=== PATIENT | male | born 2005 | race Caucasian/White ===

== ENCOUNTER 2024-02-19 15:09 | Observation (INO) ==
[2024-02-19] MEDS: KETOROLAC TROMETHAMINE 15 MG/ML VIAL IV STA (16:01)
[2024-02-19] MEDS: SODIUM CHLORIDE 0.9% 1,000 ML IV ONE (16:01)
--- NOTE | 2024-02-19 16:18 | XRay Report ---
EXAM: Radiograph of the Chest 1 View INDICATION: Chest pain. TECHNIQUE: Frontal view of the chest. COMPARISON: No relevant prior studies available. FINDINGS: Lungs and pleural spaces: No consolidation or pulmonary edema. No pleural effusion or pneumothorax. Heart: Shape and configuration within normal limits allowing for technique. Mediastinum: Normal contour. Bones/joints: No fracture, erosion or dislocation. Soft tissues: No abnormality noted. No radiopaque foreign body noted. Upper abdomen: No abnormality noted. IMPRESSION: No abnormality noted. ACT 112: Negative or not required by law. Electronically signed by Ingrid Schwartz 02-19-2024 4:18 PM
[2024-02-19 16:23] LABS: Basophils # (auto) 0.02 K/uL (0.00-0.20); Basophils % (auto) 0.3 %; Eosinophils # (auto) 0.05 K/uL (0.00-0.50); Eosinophils % (auto) 0.7 %; Hematocrit (blood only) 42.4 % (42.0-52.0); Hemoglobin 15.1 g/dl (14.0-18.0); Immature Granulocytes # (auto) 0.02 K/uL (0.01-0.20); Immature Granulocytes % (auto) 0.3 %; Lymphocytes # (auto) 2.53 K/uL (1.20-3.40); Lymphocytes % (auto) 36.9 %; Mean Corpuscular Hemoglobin 29.3 pg (25.0-34.0); Mean Corpuscular Hgb Conc 35.6 g/dL (32.0-36.0); Mean Corpuscular Volume 82.2 fL (80.0-100.0); Mean Platelet Volume 9.5 fL (9.4-12.4); Monocytes # (auto) 0.68 K/uL (0.11-0.59); Monocytes % (auto) 9.9 %; Neutrophils # (auto) 3.55 K/uL (1.40-6.50); Neutrophils % (auto) 51.9 %; Platelet Count 273 K/uL (130-400); RDW Coefficient of Variation 11.5 % (11.5-14.5); RDW Standard Deviation 34.5 fL (36.4-46.3); Red Blood Count 5.16 M/uL (4.70-6.10); White Blood Count 6.85 K/ul (4.8-10.8)
[2024-02-19 16:41] LABS: Albumin Globulin Ratio 1.5 (0.9-2); Albumin Level 4.4 gm/dl (3.4-5.0); BUN Creatinine Ratio 14.3 (10-20); Bilirubin,Total 0.8 mg/dl (0.2-1.0); Calcium 9.4 mg/dl (8.6-10.3); Creatinine Clr Calc Pharmacy 144.6 ml/min; Globulin 2.9 gm/dl (2.5-4.0); Total Protein 7.3 gm/dl (6.0-8.3)
--- NOTE | 2024-02-19 16:44 | Emergency Department Note ---
ED Provider Note History of Present Illness Chief Complaint: Throat Pain Stated Complaint: NOT ABLE TO EAT/DRINK, 3 DAYS, THROAT/CHEST PAIN Time Seen by Provider: 02/19/24 15:24 Source: patient Mode of arrival: ambulatory Limitations: no limitations This is a 18-year-old male who presents to the emergency department for evaluation of pain with swallowing. Patient reports that he was seen here a few days ago and was tested for HSV at that time due to blisters in his mouth. He states that he was prescribed Magic mouthwash and sent home. He states that he has had a lot of difficulty drinking and eating due to discomfort in his throat/chest when he swallows. He has tried the Magic mouthwash, Tylenol and ibuprofen without relief. He denies any fevers. He states he does not have much pain at rest but feels the pain in his chest when he swallows. No fevers, vomiting or shortness of breath. Home Medications Medication Instructions Recorded Confirmed Type Magic Mouthwash 300 mL mouthwash 15 ml mucous membrane QID PRN pain 02/17/24 02/19/24 Rx #300 mL acetaminophen 500 mg tablet 1,000 mg PO Q6H PRN Pain 02/19/24 02/19/24 History (Tylenol Extra Strength) acyclovir 400 mg tablet 400 mg PO TID #28 tabs 02/21/24 Rx pantoprazole 40 mg tablet,delayed 40 mg PO QAM #30 tabs 02/21/24 Rx release Allergies Allergy/AdvReac Type Severity Reaction Status Date / Time No Known Allergies Allergy Unverified 02/19/24 16:43 Past Med/Surg History Problem List (Updated 02/22/24 @ 22:05 by Ashley Moody PA-C) Decreased oral intake (Acute) Odynophagia (Acute) Tonsil pain Pharyngitis (Acute) Social History Smoking Status: Current every day smoker Tobacco Type: E-cigarettes / Vaping Do You Dip or Chew Tobacco: No; Hx Alcohol Use: Yes Alcohol type: beer and hard liquor Hx Substance Use: Yes Preferred Language: Maldivian Communication Ability: Effective 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 Beliefs That Will Affect Care: None Current Living Situation: Other Current Living Situation Comment: 3 roommates Feels Safe at Home: Yes Assistive Devices: None Physical Exam Vital Signs Vital Signs - 24 hr 02/19/24 15:13 02/19/24 15:47 02/19/24 15:56 Temperature 36.6 C Temperature Source Temporal Artery Scan Pulse Rate 72 64 Pulse Rate [Apical] 57 L Respiratory Rate 17 19 Blood Pressure 136/78 Blood Pressure [Left Arm] 138/78 Blood Pressure Mean 97 Blood Pressure Mean [Left Arm] 98 Pulse Oximetry 98 98 Oxygen Delivery Method Room Air Sepsis Recent Fever Within 48 Hours No Sepsis New/Unexplained Change in Mental Status N/A Sepsis Action Taken by Nursing No Action Required VITALS: Vitals are noted on the nurse's note and reviewed by myself. GENERAL: This is a 18-year-old male, in no acute distress, well-developed well- nourished. SKIN: The skin was without rashes. EARS: External auditory canals clear, tympanic membranes pearly fishman without erythema or effusion bilaterally. EYES: Pupils equal round and reactive to light and accommodation. MOUTH: Mucous membranes moist. Scattered shallow erythematous ulcerations to the posterior oropharynx and soft palate. NECK: Supple without nuchal rigidity. No lymphadenopathy. HEART: Regular rate and rhythm without murmurs gallops or rubs. LUNGS: Clear to auscultation bilaterally without wheezes, rales or rhonchi. NEURO: Patient was alert and oriented to person place and time. Course Administered Medications Discontinued Medications Al Hydrox/Mg Hydrox/Simethicone (Aluminum/Magnesium Susp 30 Ml Udc) 15 ml PO NOW STA Stop: 02/19/24 19:06 Last Admin: 02/19/24 19:25 Dose: 15 ml Documented By: NAVEEN Dexamethasone Sodium Phosphate (DexamethasonePf 10 Mg/Ml Vial) 10 mg IV NOW ONE Stop: 02/19/24 19:06 Last Admin: 02/19/24 19:25 Dose: 10 mg Documented By: NAVEEN Fentanyl Citrate (Fentanyl Citrate Pf 100 Mcg/2 Ml Vial) Confirm Administered Dose 100 mcg .ROUTE .STK-MED ONE Stop: 02/20/24 13:35 Last Admin: 02/20/24 15:17 Dose: Not Given Documented By: JULITA Sodium Chloride (Nss) 1,000 mls @ 999 mls/hr IV .Q1H1M ONE Stop: 02/19/24 16:42 Last Infusion: 02/19/24 20:32 Dose: Infused Documented By: Admin: 02/19/24 16:01 Dose: 999 mls/hr Documented By: SRIDEVI Sodium Chloride (Nss) 1,000 mls @ 125 mls/hr IV .Q8H DAVID Stop: 02/20/24 23:18 Last Infusion: 02/21/24 01:46 Dose: Infused Documented By: KSAdrian Admin: 02/20/24 16:31 Dose: 125 mls/hr Documented By: Infusion: 02/20/24 15:24 Dose: Infused Documented By: Admin: 02/20/24 08:01 Dose: 125 mls/hr Documented By: Infusion: 02/20/24 07:59 Dose: Infused Documented By: Admin: 02/19/24 23:59 Dose: 125 mls/hr Documented By: JULIETTE Acetaminophen (Ofirmev) 1,000 mg in 100 mls @ 400 mls/hr IV Q8H PRN PRN Reason: Pain or Fever Stop: 02/22/24 23:18 Last Infusion: 02/20/24 00:17 Dose: Infused Documented By: Admin: 02/20/24 00:02 Dose: 400 mls/hr Documented By: JULIETTE Dexamethasone 10 mg/ Syringe 2.5 mls @ 1 mls/min IV DAILY DAVID Stop: 03/21/24 08:59 Last Admin: 02/20/24 08:34 Dose: 1 mls/min Documented By: JULITA Acyclovir Sodium 400 mg/ (Dextrose) 258 mls @ 250 mls/hr IV Q8H DAVID; Protocol Stop: 03/01/24 14:59 Last Infusion: 02/21/24 13:01 Dose: Infused Documented By: Admin: 02/21/24 11:53 Dose: 250 mls/hr Documented By: Infusion: 02/21/24 07:24 Dose: Infused Documented By: Admin: 02/21/24 06:10 Dose: 250 mls/hr Documented By: KSAdrian Infusion: 02/20/24 23:18 Dose: Infused Documented By: Admin: 02/20/24 22:13 Dose: 250 mls/hr Documented By: Infusion: 02/20/24 16:31 Dose: Infused Documented By: Admin: 02/20/24 15:24 Dose: 250 mls/hr Documented By: JULITA Influenza Virus Vacc Triv Types A&B (Influenza Vacc [id number](6m+)/Pf (Iiv3) 0.5ml Syr) 0.5 ml IM .ONCE ONE Stop: 02/20/24 08:48 Last Admin: 02/21/24 01:46 Dose: Not Given Documented By: JAY Ketorolac Tromethamine (Ketorolac Tromethamine 15 Mg/Ml Vial) 15 mg IV NOW STA Stop: 02/19/24 15:43 Last Admin: 02/19/24 16:01 Dose: 15 mg Documented By: SRIDEVI Lidocaine HCl (Lidocaine 2% 2 Ml Vial/Amp(20mg/Ml)) Confirm Administered Dose 6 ml INFIL .STK-MED ONE Stop: 02/20/24 13:34 Last Admin: 02/20/24 15:17 Dose: Not Given Documented By: JULITA Oxycodone HCl (Oxycodone Hcl Ir 5 Mg Tab (Immediate Release)) 5 mg PO NOW STA Stop: 02/19/24 17:41 Last Admin: 02/19/24 17:50 Dose: 5 mg Documented By: NAVEEN Pantoprazole Sodium (Pantoprazole 40 Mg Tab) 40 mg PO QAM [facility] Stop: 03/22/24 08:59 Last Admin: 02/21/24 11:13 Dose: 40 mg Documented By: AMINAH Propofol (Propofol Iv Emulsion 10 Mg/Ml 20 Ml Vial) Confirm Administered Dose 400 mg IV .STK-MED ONE Stop: 02/20/24 13:34 Last Admin: 02/20/24 15:17 Dose: Not Given Documented By: JULITA Medical Decision Making Differential Diagnosis Viral syndrome, tonsillitis, streptococcal pharyngitis, mononucleosis, peritonsillar abscess, retropharyngeal abscess, otitis, pneumonia, influenza, as well as other pathologies. Laboratory Data Attestation: I reviewed the patient's lab results. 02/20/24 03:41 02/20/24 03:41 Lab Results 02/19/24 Range/Units 15:55 WBC 6.85 (4.8-10.8) K/ul RBC 5.16 (4.70-6.10) M/uL Hgb 15.1 (14.0-18.0) g/dl Hct 42.4 (42.0-52.0) % MCV 82.2 (80.0-100.0) fL MCH 29.3 (25.0-34.0) pg MCHC 35.6 (32.0-36.0) g/dL RDW Std Deviation 34.5 L (36.4-46.3) fL RDW Coeff of Baylee 11.5 (11.5-14.5) % Plt Count 273 (130-400) K/uL MPV 9.5 (9.4-12.4) fL Immature Gran % (Auto) 0.3 % Neut % (Auto) 51.9 % Lymph % (Auto) 36.9 % Snyder % (Auto) 9.9 % Eos % (Auto) 0.7 % Baso % (Auto) 0.3 % Neut # (Auto) 3.55 (1.40-6.50) K/uL Lymph # (Auto) 2.53 (1.20-3.40) K/uL Snyder # (Auto) 0.68 H (0.11-0.59) K/uL Eos # (Auto) 0.05 (0.00-0.50) K/uL Baso # (Auto) 0.02 (0.00-0.20) K/uL Immature Gran # (Auto) 0.02 (0.01-0.20) K/uL Sodium 136 (136-145) mmol/L Potassium 4.0 (3.5-5.1) mmol/L Chloride 99 (98-107) mmol/L Carbon Dioxide 28 (21-32) mmol/L Anion Gap 9 (3-11) BUN 13 (6-23) mg/dl Creatinine 0.91 (0.6-1.4) mg/dl Est Cr Clr Drug Dosing 144.6 ml/min eGFR 124.51 BUN/Creatinine Ratio 14.3 (10-20) Glucose 86 (70-99(Fasting)) mg/dl Calcium 9.4 (8.6-10.3) mg/dl Total Bilirubin 0.8 (0.2-1.0) mg/dl AST 12 L (13-39) U/L ALT 5 L (7-52) U/L Alkaline Phosphatase 55 (34-104) U/L Total Protein 7.3 (6.0-8.3) gm/dl Albumin 4.4 (3.4-5.0) gm/dl Globulin 2.9 (2.5-4.0) gm/dl Albumin/Globulin Ratio 1.5 (0.9-2) Imaging Data Attestation: I personally reviewed and interpreted this imaging study as follows: Radiologist's Impression: Chest X-Ray 02/19/24 15:43 EXAM: Radiograph of the Chest 1 View INDICATION: Chest pain. TECHNIQUE: Frontal view of the chest. COMPARISON: No relevant prior studies available. FINDINGS: Lungs and pleural spaces: No consolidation or pulmonary edema. No pleural effusion or pneumothorax. Heart: Shape and configuration within normal limits allowing for technique. Mediastinum: Normal contour. Bones/joints: No fracture, erosion or dislocation. Soft tissues: No abnormality noted. No radiopaque foreign body noted. Upper abdomen: No abnormality noted. IMPRESSION: No abnormality noted. ACT 112: Negative or not required by law. Electronically signed by Ingrid Schwartz 02-19-2024 4:18 PM MDM Narrative This patient is a 18-year-old male who presents to the emergency department for evaluation of inability to eat or drink anything. Patient was seen here recently due to a sore throat. It appears that he had herpangina which actually seems to be improved today based on the prior note. However, patient states he has been unable to eat or drink anything since then. His labs are unremarkable. I do suspect a viral source of his symptoms. Patient was given multiple rounds of pain medication here with no relief of his symptoms. He was still unable to tolerate anything to eat or drink more than a few sips of water. For this reason the case was discussed with the hospitalist service who agreed to evaluate the patient for admission. Impression Odynophagia, Decreased oral intake Discharge Plan Visit Data Chief Complaint: Throat Pain Stated Complaint: NOT ABLE TO EAT/DRINK, 3 DAYS, THROAT/CHEST PAIN ED Provider: Crescencio Mullins ED Midlevel Provider: Ashley Moody Discharge Problem: Odynophagia, Decreased oral intake Patient Disposition: Admitted As Inpatient Discharge Instructions Interventions: ED Discharge Assessment Last Done: 02/19/24 22:52
[2024-02-19] MEDS: oxyCODONE HCL IR 5 MG TAB (IMMEDIATE RELEASE) PO STA (17:50)
[2024-02-19] MEDS: ALUMINUM/MAGNESIUM SUSP 30 ML UDC PO STA (19:25)
[2024-02-19] MEDS: dexAMETHasone**PF** 10 MG/ML VIAL IV ONE (19:25)
--- NOTE | 2024-02-19 21:18 | History & Physical Report ---
Date of Service February 19, 2024 Assessment & Plan (1) Pharyngitis: Plan: -Patient with a sore throat for the past week and having issues with eating and drinking. -States that he has not eaten since Saturday. Only able to get water down. -Instructed patient to stop vaping especially during his illness. -HSV testing pending from 02/16. Reports COVID, flu, mono, strep negative at urgent care previously. -CBC unremarkable, CMP unremarkable, 3+ ketones in the urine. -Chest x-ray negative, chest CT negative -Neck soft tissue CT showed Prominent lingual and faucial tonsils with cervical lymphadenopathy. No evidence of abscess or drainable fluid collection on this noncontrast study. -May consider contrast CT if symptoms worsen. Vital signs stable at this time. -Received Toradol in the ED as well as 1 L bolus and oxycodone. Also received a dose of dexamethasone -Will start on NSS at 125, Zofran as needed, mouthwash as needed, Tylenol for pain. -Will continue on dexamethasone daily at this time. -Will keep n.p.o., speech therapy evaluate and treat, GI consulted. History of Present Illness Chief Complaint: Inability to swallow Primary Care Provider: [facility] Patient is a 18-year-old male with no significant past medical history who presents to the hospital for evaluation of pain with swallowing. Patient's symptoms started a week ago. Patient had fever, sore throat, achiness, chills. He was seen by urgent care and was tested for strep, flu, COVID, and mono which were negative. He then came into the ED on 02/16 for throat pain. He was sent home with Magic mouthwash. He continues to have issues with swallowing. He has not eaten since Saturday night. States that he can only basically get water down at this point. States that he has pain in his esophagus down into his epigastric region with swallowing. States that he is able to swallow but it is very painful. States that he also had some blisters in the mouth that have resolved at this time. He did have testing for herpes which is still pending from the night. He has been taking Tylenol which has not helped much. Denies any shortness of breath, nausea, or vomiting. Denies any issues with breathing. Of note patient does vape and has been doing so for the last year. He has been also vaping during this illness. Allergies Allergy/AdvReac Type Severity Reaction Status Date / Time No Known Allergies Allergy Unverified 02/19/24 16:43 Home Medications Medication Instructions Recorded Confirmed Type Magic Mouthwash 300 mL mouthwash 15 ml mucous membrane QID PRN pain 02/17/24 02/19/24 Rx #300 mL acetaminophen 500 mg tablet 1,000 mg PO Q6H PRN Pain 02/19/24 02/19/24 History (Tylenol Extra Strength) [id number]-acetaminophen 7.5 30 ml PO UD PRN COUGH,COLD 02/19/24 02/19/24 History mg-60 [id number]/30mL oral liqd ibuprofen 200 mg tablet (Motrin IB) 400 mg PO Q6H PRN Pain 02/19/24 02/19/24 History Past Med/Surg History Problem List (Updated 02/20/24 @ 10:04 by Cj Calvillo PA-C) Odynophagia Tonsil pain Pharyngitis (Acute) Social History Smoking Status: Current every day smoker Tobacco Type: E-cigarettes / Vaping Do You Dip or Chew Tobacco: No; Tobacco Cessation Education Requested by Patient: Yes Hx Alcohol Use: Yes Alcohol type: beer and hard liquor Hx Substance Use: Yes Preferred Language: [place] Communication Ability: Effective Chip Applying Machine Tender Required: No Beliefs That Will Affect Care: None Current Living Situation: Other Current Living Situation Comment: 3 roommates Other Information That Helps Us Care for You: No Feels Safe at Home: Yes Safety Concerns: Feels Safe At This Time Assistive Devices: None Review of Systems Review of Systems: All systems reviewed & are unremarkable except as noted in Subjective Physical Exam Physical Exam: Constitutional: well-appearing, no acute distress HEENT: NCAT, no conjunctival injection CV: regular rhythm, no murmur appreciated, extremities well-perfused, no LE edema Resp: CTABL, no wheezes/rales/rhonchi appreciated, no increased work of douglas thing GI: soft, nondistended, nontender, BS normoactive MSK: no gross deformities appreciated Skin: warm, dry, no rash appreciated Neuro: alert, oriented, no focal neurologic deficit appreciated Results & Data Results & Data Vital Signs (Past 12 Hours) Vital Signs Temp Pulse Pulse Resp BP BP Pulse Ox 02/19/24 21:00 76 19 139/72 97 02/19/24 20:51 81 20 99 02/19/24 20:42 78 23 98 02/19/24 20:30 73 20 138/86 98 02/19/24 20:12 67 21 99 02/19/24 20:06 67 19 98 02/19/24 20:00 131/76 02/19/24 19:48 62 25 H 98 02/19/24 19:48 61 02/19/24 19:45 60 18 99 02/19/24 19:15 61 16 97 02/19/24 19:03 60 24 96 02/19/24 19:00 57 L 20 138/85 99 02/19/24 18:30 63 26 H 99 02/19/24 18:30 138/85 02/19/24 18:30 138/85 02/19/24 18:15 54 L 22 100 02/19/24 18:12 64 19 138/84 98 02/19/24 18:03 57 L 19 96 02/19/24 18:00 138/84 02/19/24 17:48 61 18 95 02/19/24 17:42 62 22 98 02/19/24 17:33 65 20 98 02/19/24 17:30 126/80 02/19/24 17:27 79 16 96 02/19/24 17:24 60 21 96 02/19/24 17:18 70 18 97 02/19/24 17:06 60 16 98 02/19/24 16:42 58 L 22 97 02/19/24 16:30 61 23 97 02/19/24 16:30 131/79 02/19/24 16:24 59 L 23 97 02/19/24 16:00 135/96 02/19/24 16:00 59 L 22 98 02/19/24 15:56 57 L 19 138/78 98 02/19/24 15:54 67 17 98 02/19/24 15:47 64 02/19/24 15:45 60 14 97 02/19/24 15:42 138/78 02/19/24 15:42 138/78 02/19/24 15:13 36.6 C 72 17 136/78 98 O2 Del Method 02/19/24 21:00 Room Air 02/19/24 20:51 02/19/24 20:42 02/19/24 20:30 02/19/24 20:12 02/19/24 20:06 02/19/24 20:00 02/19/24 19:48 02/19/24 19:48 02/19/24 19:45 02/19/24 19:15 02/19/24 19:03 02/19/24 19:00 Room Air 02/19/24 18:30 02/19/24 18:30 02/19/24 18:30 02/19/24 18:15 02/19/24 18:12 Room Air 02/19/24 18:03 02/19/24 18:00 02/19/24 17:48 02/19/24 17:42 02/19/24 17:33 02/19/24 17:30 02/19/24 17:27 02/19/24 17:24 02/19/24 17:18 02/19/24 17:06 02/19/24 16:42 02/19/24 16:30 02/19/24 16:30 02/19/24 16:24 02/19/24 16:00 02/19/24 16:00 02/19/24 15:56 02/19/24 15:54 02/19/24 15:47 02/19/24 15:45 02/19/24 15:42 02/19/24 15:42 02/19/24 15:13 Room Air Supervising Physician Co-Signing Physician Notes Attending addendum: I have physically seen this patient, have supervised the medical residents activities, and agree with the H&P unless as otherwise noted. Assessment and Plan: Lingual and fascial tonsillitis/pharyngitis with cervical lymphadenopathy- N.p.o. Patient reports negative testing urgent care recently for COVID, flu, mono and strep CT chest without acute findings CT soft tissue of neck gave entrance diagnosis as noted above Given dexamethasone 6 mg IV in ED and will continue 6 mg IV daily From the ED also received Toradol IV, 1 L normal saline bolus, and oxycodone Placed on NSS at 1.5 mL/h Zofran 4 mg IV every 6 hours as needed Tylenol 1 g IV every 8 hours as needed mild pain or fever Pantoprazole 40 mg IV daily Consult to gastroenterology Resident Activity Tracking Resident Involvement: Resident Care Provided Care Provided: Adult Hospital Medicine (1) Pharyngitis Pharyngitis/tonsillitis etiology: unspecified etiology Qualified Code(s): J02.9 - Acute pharyngitis, unspecified
[2024-02-19] MEDS ORDERED: ONDANSETRON INJ 2 MG/ML 2 ML VIAL IV PRN (23:19)
[2024-02-19] MEDS ORDERED: FIRST - Mouthwash BLM 119 ML PO PRN (23:22)
--- NOTE | 2024-02-19 23:25 | CT Scan Report ---
Exam(s): CT NECK Without Contrast EXAM: CT Neck Without Intravenous Contrast CLINICAL HISTORY: Reason for exam: inability to swallow. TECHNIQUE: Axial computed tomography images of the neck without intravenous contrast. CTDI is 19.8 mGy and DLP is 708.57 mGy-cm. Automated exposure control was utilized for the study. A dose lowering technique was utilized adhering to the principles of ALARA. COMPARISON: No relevant prior studies available. FINDINGS: Nasal cavity/septum: Unremarkable. Nasopharynx: Unremarkable. Oropharynx: Prominent faucial and lingual tonsils. Hypopharynx: Unremarkable. Larynx: Unremarkable. Normal epiglottis. Trachea: Unremarkable. Retropharyngeal space: Unremarkable. Submandibular/parotid glands: Unremarkable. Glands are normal in size. Thyroid: Unremarkable. No enlarged or calcified nodules. Bones/joints: No acute fracture. Soft tissues: Unremarkable. Vasculature: No acute findings. Lymph nodes: Cervical lymphadenopathy. Sinuses: Chronic maxillary and left ethmoid sinusitis. No acute sinusitis. Lung apices: Unremarkable as visualized. IMPRESSION: Prominent lingual and faucial tonsils with cervical lymphadenopathy. No evidence of abscess or drainable fluid collection on this noncontrast study. Electronically signed by: Ilene Rhodes MD 02/19/24 23:24 PM
--- NOTE | 2024-02-19 23:42 | CT Scan Report ---
Exam(s): CT CHEST Without Contrast EXAM: CT Chest Without Intravenous Contrast CLINICAL HISTORY: Reason for exam: inability to swallow. TECHNIQUE: Axial computed tomography images of the chest without intravenous contrast. CTDI is 15 mGy and DLP is 484.27 mGy-cm. Automated exposure control was utilized for the study. A dose lowering technique was utilized adhering to the principles of ALARA. COMPARISON: No relevant prior studies available. FINDINGS: Lungs: Unremarkable. No mass. No consolidation. Pleural space: Unremarkable. No pneumothorax. No significant effusion. Heart: Unremarkable. No cardiomegaly. No significant pericardial effusion. No significant coronary artery calcifications. Mediastinum: The esophagus is unremarkable. No radiopaque foreign bodies are noted. Bones/joints: Unremarkable. No acute fracture. No dislocation. Soft tissues: Unremarkable. Vasculature: Unremarkable. No thoracic aortic aneurysm. Lymph nodes: Unremarkable. No enlarged lymph nodes. IMPRESSION: 1. No acute cardiopulmonary abnormality. 2. The esophagus is unremarkable. No radiopaque foreign bodies are noted. Electronically signed by: Rory Cain MD 02/19/24 23:41 PM
[2024-02-19 23:50] LABS: Appearance Urine Clear (Clear); Bilirubin Urine Negative (Negative); Blood Urine Negative (Negative); Color Urine Yellow; Glucose Urine UA Negative (Negative); Ketones Urine 3+ (Negative); Leukocyte Esterase Urine Negative (Negative); Nitrite Urine Negative (Negative); Protein Urine Negative (Negative); Specific Gravity Urine 1.018 (1.000-1.030); Urobilinogen Urine Negative (Negative)
[2024-02-19] MEDS: SODIUM CHLORIDE 0.9% 1,000 ML IV SCH (23:59)
[2024-02-20] MEDS: ACETAMINOPHEN 1,000 MG/100 ML VIAL IV PRN (00:02)
[2024-02-20 04:09] LABS: Hematocrit (blood only) 40.6 % (42.0-52.0); Hemoglobin 14.3 g/dl (14.0-18.0); Mean Corpuscular Hemoglobin 29.2 pg (25.0-34.0); Mean Corpuscular Hgb Conc 35.2 g/dL (32.0-36.0); Mean Platelet Volume 9.5 fL (9.4-12.4); Platelet Count 278 K/uL (130-400); RDW Coefficient of Variation 11.4 % (11.5-14.5); RDW Standard Deviation 34.5 fL (36.4-46.3); Red Blood Count 4.89 M/uL (4.70-6.10); White Blood Count 6.61 K/ul (4.8-10.8)
[2024-02-20 04:32] LABS: Albumin Globulin Ratio 1.5 (0.9-2); Albumin Level 4.1 gm/dl (3.4-5.0); BUN Creatinine Ratio 14.8 (10-20); Bilirubin,Total 0.7 mg/dl (0.2-1.0); Creatinine Clr Calc Pharmacy 151.3 ml/min; Globulin 2.7 gm/dl (2.5-4.0); Magnesium 2.1 mg/dl (1.7-2.4); Potassium 5.1 mmol/L (3.5-5.1); Total Protein 6.8 gm/dl (6.0-8.3)
[2024-02-20] MEDS: dexAMETHasone 10 MG in SYRINGE 0 ML IV SCH (08:34)
[2024-02-20] MEDS ORDERED: dexAMETHasone**PF** 10 MG/ML VIAL IV SCH (09:00)
--- NOTE | 2024-02-20 10:00 | Gastrointestinal Consultation ---
Date of Consultation February 20, 2024 Assessment & Plan (1) Odynophagia: Patient admitted with pharyngitis and also having complaints of odynophagia in the setting of recent nsaid use. Case discussed with Dr. Lee. - will plan to set up EGD for further evaluation. patient and father were agreeable. will attempt to do today. - start protonix 40mg daily. - avoid nsaid use. Supervising Physician Co-Signing Physician Notes I examined the patient and reviewed patient's chart , laboratory data and imaging studies. I agree with with assessment and plan of care as suggested by advanced practice provider. Acute onset of odynophagia, symptoms are suggestive of viral, possibly herpetic esophagitis. EGD with esophageal biopsies today History of Present Illness Reason for Consultation: inability to swallow Requesting Physician: Suleiman Osorio DO Attending Physician: Epifanio Nichole MD History of Present Illness Patient is a 18 year old male with no significant past medical history who presents to the hospital for evaluation of pain with swallowing. He tells me that symptoms started earlier this week. He had been to the ED earlier in the course of symptoms, but came back as he was unable to tolerate oral intake. He admits to pain in both his throat and in his sternal area when he swallows. he does not appreciate foods sticking. He also admits to some motrin use recently for symptoms. He had CT of his neck showing prominent lingual and and faucial tonsils with cervical lymphadenopathy. No evidence of abscess or drainable fluid collection on this noncontrast study. no other GI concerns currently. 02/20/24 wbc 6.61, hgb 14.3, hct 40.6, mcv 83, platelets 278. Allergies Allergy/AdvReac Type Severity Reaction Status Date / Time No Known Allergies Allergy Unverified 02/19/24 16:43 Home Medications Medication Instructions Recorded Confirmed Type Magic Mouthwash 300 mL mouthwash 15 ml mucous membrane QID PRN pain 02/17/24 02/19/24 Rx #300 mL acetaminophen 500 mg tablet 1,000 mg PO Q6H PRN Pain 02/19/24 02/19/24 History (Tylenol Extra Strength) [id number]-acetaminophen 7.5 30 ml PO UD PRN COUGH,COLD 02/19/24 02/19/24 History mg-60 [id number]/30mL oral liqd ibuprofen 200 mg tablet (Motrin IB) 400 mg PO Q6H PRN Pain 02/19/24 02/19/24 History Patient History Social History Smoking Status: Current every day smoker Tobacco Type: E-cigarettes / Vaping Do You Dip or Chew Tobacco: No; Tobacco Cessation Education Requested by Patient: Yes Hx Alcohol Use: Yes Alcohol type: beer and hard liquor Hx Substance Use: Yes Preferred Language: Bolivian Communication Ability: Effective Executor Of Estate Required: No Beliefs That Will Affect Care: None Current Living Situation: Other Current Living Situation Comment: 3 roommates Other Information That Helps Us Care for You: No Feels Safe at Home: Yes Safety Concerns: Feels Safe At This Time Assistive Devices: None Review of Systems Review of Systems: All systems reviewed & are unremarkable except as noted in HPI & below Physical Exam Constitutional: WD/WN, vitals as above Respiratory: normal respiratory effort, lungs clear to auscultation Cardiovascular: Rate/Rhythm: regular rate and regular rhythm Gastrointestinal (Abdomen): normal bowel sounds, soft, nontender, no hepatosplenomegaly Psychiatric: Orientation: alert and oriented x 3 Results & Data Vital Signs (Past 12 Hours) Vital Signs Temp Pulse Pulse Resp BP BP Pulse Ox 02/20/24 06:55 97.9 F 48 L 16 139/82 99 02/19/24 23:20 97.5 F L 60 18 121/64 99 02/19/24 22:52 65 20 145/83 H 97 O2 Del Method 02/20/24 06:55 Room Air 02/19/24 23:20 Room Air 02/19/24 22:52 Room Air Coding Level of Care Code 22231 IN/OBS CONSULT LVL 4,60M Diagnoses Odynophagia R13.10
--- NOTE | 2024-02-20 12:04 | Hospitalist Progress Note ---
Date of Service February 20, 2024 Assessment & Plan (1) Odynophagia: Plan: Acute with inability to tolerate oral intake - Continue supportive IVF - IV Decadron ordered, continue - HSV testing ordered/pending - GI consulted, for EGD this afternoon - Need to exclude infectious esophagitis as potential etiology - HSV, CMV, or candidiasis - Agree with addition of PPI therapy, Protonix 40mg daily ordered by GI, continue - Await EGD, for now continue IV APAP as needed for pain, IVF, Magic mouthwash, and Dex Plan Plan as outlined above, will d/w Dr. Nelson. Admission and Anticipated Discharge Date Admission Date: February 19, 2024 Debi Angel is a 18 yo M who presented to the ER on 02/18 w/ complaints of painful swallowing that initially started last Saturday with a sore throat that has since progressed to painful swallowing associated with food or liquids. He denies fever or chills. New recent cold sore on his lower lip that is the first he has ever had. Father reports h/o reflux as a baby but none since that time. He has used NSAIDs recently and vapes. No n/v reported. Review of Systems 2 Review of Systems: All systems reviewed and are unremarkable except as noted in HPI and below. Denies fever, chills, fatigue, headache, nasal congestion, cough, chest pain, shortness of breath, palpitations, orthopnea, PND, abdominal pain, n/v/d, constipation, dysuria, hematuria, frequency, back pain, joint pain or swelling, easy bruising or bleeding, skin lesions or rashes. Physical Exam 2 Physical Exam: GENERAL: 18 yo WM well-nourished. A&Ox4. NAD. ENT: Small scabbed lesion on lower van border. LUNGS: Clear to auscultation bilaterally. No W/R/R. CARDIOVASCULAR: Regular rate and rhythm. No M/G/R. No JVD. ABDOMEN: Soft, non-tender and non-distended. No palpable masses. BS normoactive x 4 quad. SKIN: Warm, dry, intact. No rashes or lesions. Results & Data Results & Data Vital Signs (Past 12 Hours) Vital Signs Temp Pulse Resp BP Pulse Ox O2 Del Method 02/20/24 06:55 36.6 C 48 L 16 139/82 99 Room Air Laboratory Results 02/20/24 03:41 02/20/24 03:41 PG Care Time/CCT Total # of Minutes Spent Total Time Spent with Patient: Total time spent is greater than 50% in coordination of care (as documented) at patient's floor/unit and/or counseling patient: 36 minutes Coding Level of Care Code 19449 SUB INP/OBS CARE 2/35MIN Diagnoses Odynophagia R13.10
--- NOTE | 2024-02-20 13:13 | Anesthesiology Consultation ---
Date of Service February 20, 2024 Assessment & Plan Chart Review Chart Review: Acceptable Risk for Surgery Consults Requested none History Surgery Operation Date: 02/20/24 17:20 Proposed Procedures p Esophagogastroduodenoscopy Rosa Lee MD Height/Weight Height: 6 ft 1 in Weight: 79.2 kg Allergies Allergy/AdvReac Type Severity Reaction Status Date / Time No Known Allergies Allergy Unverified 02/19/24 16:43 Medications Home Medications Medication Instructions Recorded Confirmed Last Taken Magic Mouthwash 300 mL mouthwash 15 ml mucous membrane QID PRN pain 02/17/24 02/19/24 02/19/24 #300 mL acetaminophen 500 mg tablet 1,000 mg PO Q6H PRN Pain 02/19/24 02/19/24 02/19/24 (Tylenol Extra Strength) [id number]-acetaminophen 7.5 30 ml PO UD PRN COUGH,COLD 02/19/24 02/19/24 02/18/24 mg-60 [id number]/30mL oral liqd ibuprofen 200 mg tablet (Motrin IB) 400 mg PO Q6H PRN Pain 02/19/24 02/19/24 02/19/24 Active Medications Generic Name Dose Route Start Last Admin Trade Name Freq PRN Reason Stop Dose Admin Sodium Chloride 1,000 mls @ 125 mls/hr 02/19/24 23:19 02/20/24 08:01 Nss IV 02/20/24 23:18 125 mls/hr .Q8H DAVID Administration Acetaminophen 1,000 mg in 100 mls @ 400 mls/hr 02/19/24 23:19 02/20/24 00:17 Ofirmev IV 02/22/24 23:18 Infused Q8H PRN Infusion Pain or Fever Dexamethasone 10 mg/ Syringe 2.5 mls @ 1 mls/min 02/20/24 09:00 02/20/24 08:34 IV 03/21/24 08:59 1 mls/min DAILY DAVID Administration Social History Smoking Status: Current every day smoker Do You Dip or Chew Tobacco: No Hx Alcohol Use: Yes Alcohol type: beer and hard liquor alcohol intake frequency: a few times a week Hx Substance Use: Yes substance use type: marijuana Physical Exam Vital Signs Last Vital Signs Temp 36.6 C 02/20/24 06:55 Pulse 48 L 02/20/24 06:55 Resp 16 02/20/24 06:55 BP 139/82 02/20/24 06:55 Pulse Ox 99 02/20/24 06:55 O2 Del Method Room Air 02/20/24 06:55 Testing Laboratory Results 02/20/24 03:41 02/20/24 03:41 Urine Color Yellow 02/19/24 23:15 Urine Appearance Clear (Clear) 02/19/24 23:15 Urine pH 6.0 (4.5-7.5) 02/19/24 23:15 Ur Specific [place] 1.018 (1.000-1.030) 02/19/24 23:15 Urine Protein Negative (Negative) 02/19/24 23:15 Urine Glucose (UA) Negative (Negative) 02/19/24 23:15 Urine Ketones 3+ (Negative) H 02/19/24 23:15 Urine Nitrite Negative (Negative) 02/19/24 23:15 Ur Leukocyte Esterase Negative (Negative) 02/19/24 23:15
[2024-02-20] MEDS ORDERED: PROPOFOL IV EMULSION 10 MG/ML 20 ML VIAL IV ONE (14:35)
--- NOTE | 2024-02-20 14:51 | GI REPORT ---
[facility] Patient: ROSE MARIE WEEKS : 2005 Sex at : Male Age: 18 Years Procedure: Upper GI endoscopy Date: 02/20/2024 Attending Physician: Win Lee MD Referring MD: Referred Self Indications: - Odynophagia Medications: - Monitored Anesthesia Care Complications: - No immediate complications. Estimated Blood Loss: - Estimated blood loss: None. Procedure: - The egd scope was introduced through the mouth and advanced to the second part of the duodenum. - The upper GI endoscopy was accomplished without difficulty. - The patient tolerated the procedure well. Findings: - Esophagitis was found in the middle third of the esophagus. Biopsies were taken with a cold forceps for histology. Mid and distal esophageal acute esophagitis with multiple shallow ulcerations. The appearance was suggestive of herpetic esophagitis. Multiple biopsies were obtained. - The entire examined stomach was normal. - The examined duodenum was normal. Impression: - Acute and herpetiform esophagitis. Biopsied. - Mid and distal esophageal acute esophagitis with multiple shallow ulcerations. The appearance was suggestive of herpetic esophagitis. Multiple biopsies were obtained. - Normal stomach. - Normal examined duodenum. Recommendation: - Intravenous acyclovir 400 mg 3 times a day until able to take p.o. - Acyclovir 400 p.o. for 7 days when able to start oral feedings. - Await pathology results. - Return to GI office at appointment to be scheduled. - Return to referring physician as previously scheduled. Procedure Code(s): - 19537, Esophagogastroduodenoscopy, flexible, transoral; with biopsy, single or multiple Diagnosis Code(s): - R13.10, Dysphagia, unspecified - B00.9, Herpesviral infection, unspecified - K20.80, Other esophagitis without bleeding CPT(R) - 202 copyright [employer]. All Rights Reserved. The CPT codes, CCI edits and ICD codes generated are intended as suggestions and were generated based on input data. These codes are preliminary and upon termite control servicer review may be revised to meet current compliance and payer requirements. The provider is responsible for the final determination of appropriate codes, and modifiers. Win Lee M.D. , This document has been electronically signed. Note Initiated:02/20/2024 Note Completed:02/20/2024 2:50 PM [id number]
--- NOTE | 2024-02-20 15:10 | Anesthesiology Progress Note ---
Date of Service February 20, 2024 Anesthesia Post Procedure Vital Signs Vital Signs: Temp Pulse Pulse Pulse Resp BP BP 02/20/24 14:59 59 L 16 02/20/24 14:44 52 L 16 02/20/24 13:14 36.5 C 55 L 16 02/20/24 06:55 36.6 C 48 L 16 02/19/24 23:20 36.4 C L 60 18 02/19/24 22:52 65 20 145/83 H 02/19/24 21:00 76 19 139/72 02/19/24 20:51 81 20 02/19/24 20:42 78 23 02/19/24 20:30 73 20 138/86 02/19/24 20:12 67 21 02/19/24 20:06 67 19 02/19/24 20:00 131/76 02/19/24 19:48 62 25 H 02/19/24 19:48 61 02/19/24 19:45 60 18 02/19/24 19:15 61 16 02/19/24 19:03 60 24 02/19/24 19:00 57 L 20 138/85 02/19/24 18:30 63 26 H 02/19/24 18:30 138/85 02/19/24 18:30 138/85 02/19/24 18:15 54 L 22 02/19/24 18:12 64 19 138/84 02/19/24 18:03 57 L 19 02/19/24 18:00 138/84 02/19/24 17:48 61 18 02/19/24 17:42 62 22 02/19/24 17:33 65 20 02/19/24 17:30 126/80 02/19/24 17:27 79 16 02/19/24 17:24 60 21 02/19/24 17:18 70 18 02/19/24 17:06 60 16 02/19/24 16:42 58 L 22 02/19/24 16:30 61 23 02/19/24 16:30 131/79 02/19/24 16:24 59 L 23 02/19/24 16:00 135/96 02/19/24 16:00 59 L 22 02/19/24 15:56 57 L 19 138/78 02/19/24 15:54 67 17 02/19/24 15:47 64 02/19/24 15:45 60 14 02/19/24 15:42 138/78 02/19/24 15:42 138/78 02/19/24 15:13 36.6 C 72 17 136/78 BP Pulse Ox O2 Del Method 02/20/24 14:59 127/72 95 Room Air 02/20/24 14:44 127/77 93 Room Air 02/20/24 13:14 134/74 99 Room Air 02/20/24 06:55 139/82 99 Room Air 02/19/24 23:20 121/64 99 Room Air 02/19/24 22:52 97 Room Air 02/19/24 21:00 97 Room Air 02/19/24 20:51 99 02/19/24 20:42 98 02/19/24 20:30 98 02/19/24 20:12 99 02/19/24 20:06 98 02/19/24 20:00 02/19/24 19:48 98 02/19/24 19:48 02/19/24 19:45 99 02/19/24 19:15 97 02/19/24 19:03 96 02/19/24 19:00 99 Room Air 02/19/24 18:30 99 02/19/24 18:30 02/19/24 18:30 02/19/24 18:15 100 02/19/24 18:12 98 Room Air 02/19/24 18:03 96 02/19/24 18:00 02/19/24 17:48 95 02/19/24 17:42 98 02/19/24 17:33 98 02/19/24 17:30 02/19/24 17:27 96 02/19/24 17:24 96 02/19/24 17:18 97 02/19/24 17:06 98 02/19/24 16:42 97 02/19/24 16:30 97 02/19/24 16:30 02/19/24 16:24 97 02/19/24 16:00 02/19/24 16:00 98 02/19/24 15:56 98 02/19/24 15:54 98 02/19/24 15:47 02/19/24 15:45 97 02/19/24 15:42 02/19/24 15:42 02/19/24 15:13 98 Room Air Pain Intensity Throat: Pain Intensity: 8 Transfer of Care Handoff Completed per policy Notes Mental Status: alert / awake / arousable and participated in evaluation Patient Amnestic to Procedure: Yes Nausea / Vomiting: adequately controlled Pain: adequately controlled Airway Patency, RR, SpO2: stable & adequate BP & HR: stable & adequate Hydration State: stable & adequate Anesthetic Complications: no major complications apparent
[2024-02-20] MEDS: fentaNYL citrate PF 100 MCG/2 ML VIAL ONE (15:17)
[2024-02-20] MEDS: LIDOCAINE 2% 2 ML VIAL/AMP(20MG/ML) INFIL ONE (15:17)
[2024-02-20] MEDS: PROPOFOL IV EMULSION 10 MG/ML 20 ML VIAL IV ONE (15:17)
[2024-02-20] MEDS: ACYCLOVIR SOD 400 MG in DEXTROSE 5% 250 ML IV SCH (15:24)
[2024-02-21] MEDS: INFLUENZA VACC TS2024-25(6m+)/PF (IIV3) 0.5mL Syr IM ONE (01:46)
--- NOTE | 2024-02-21 05:57 | Billing Data ---
Date of Service February 21, 2024 Coding Level of Care Code 88605 INT INP/OBS CARE
[2024-02-21 07:16] VITALS: BP 113/65; PULSE 52; RESP 18; TEMP 97.7; O2SAT 99
[2024-02-21] MEDS: PANTOprazole 40 MG TAB PO SCH (11:13)
--- NOTE | 2024-02-21 11:14 | Discharge Summary ---
Date of Service February 21, 2024 Admission HPI Per Admitting Provider Patient is a 18-year-old male with no significant past medical history who presents to the hospital for evaluation of pain with swallowing. Patient's symptoms started a week ago. Patient had fever, sore throat, achiness, chills. He was seen by urgent care and was tested for strep, flu, COVID, and mono which were negative. He then came into the ED on 02/16 for throat pain. He was sent home with Magic mouthwash. He continues to have issues with swallowing. He has not eaten since Saturday night. States that he can only basically get water down at this point. States that he has pain in his esophagus down into his epigastric region with swallowing. States that he is able to swallow but it is very painful. States that he also had some blisters in the mouth that have resolved at this time. He did have testing for herpes which is still pending from the night. He has been taking Tylenol which has not helped much. Denies any shortness of breath, nausea, or vomiting. Denies any issues with breathing. Of note patient does vape and has been doing so for the last year. He has been also vaping during this illness. 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 A&Ox4. NAD. ENT: No ulcerations observed in posterior pharynx LUNGS: Clear to auscultation bilaterally. No W/R/R. CARDIOVASCULAR: Regular rate and rhythm. No M/G/R. No JVD. ABDOMEN: Soft, non-tender and non-distended. BS normoactive x 4 quad. EXTREMITIES: No edema. Non-tender. Peripheral pulses +2/4. SKIN: Warm, dry, intact. No rashes or lesions. Discharge Data Consultations 02/19/24 20:57 ED Decision to Admit Stat 02/19/24 23:19 Consult Gastroenterology Routine Procedures Performed Operation Date: 02/20/24 17:20 Actual Procedures p EGD Biopsy Cytology - Win Lee MD Chest X-Ray 02/19/24 15:43 EXAM: Radiograph of the Chest 1 View INDICATION: Chest pain. TECHNIQUE: Frontal view of the chest. COMPARISON: No relevant prior studies available. FINDINGS: Lungs and pleural spaces: No consolidation or pulmonary edema. No pleural effusion or pneumothorax. Heart: Shape and configuration within normal limits allowing for technique. Mediastinum: Normal contour. Bones/joints: No fracture, erosion or dislocation. Soft tissues: No abnormality noted. No radiopaque foreign body noted. Upper abdomen: No abnormality noted. IMPRESSION: No abnormality noted. ACT 112: Negative or not required by law. Electronically signed by Ingrid Schwartz 02-19-2024 4:[address] 02/19/24 21:35 Exam(s): CT CHEST Without Contrast EXAM: CT Chest Without Intravenous Contrast CLINICAL HISTORY: Reason for exam: inability to swallow. TECHNIQUE: Axial computed tomography images of the chest without intravenous contrast. CTDI is 15 mGy and DLP is 484.27 mGy-cm. Automated exposure control was utilized for the study. A dose lowering technique was utilized adhering to the principles of ALARA. COMPARISON: No relevant prior studies available. FINDINGS: Lungs: Unremarkable. No mass. No consolidation. Pleural space: Unremarkable. No pneumothorax. No significant effusion. Heart: Unremarkable. No cardiomegaly. No significant pericardial effusion. No significant coronary artery calcifications. Mediastinum: The esophagus is unremarkable. No radiopaque foreign bodies are noted. Bones/joints: Unremarkable. No acute fracture. No dislocation. Soft tissues: Unremarkable. Vasculature: Unremarkable. No thoracic aortic aneurysm. Lymph nodes: Unremarkable. No enlarged lymph nodes. IMPRESSION: 1. No acute cardiopulmonary abnormality. 2. The esophagus is unremarkable. No radiopaque foreign bodies are noted. Electronically signed by: Rory Cain MD 02/19/24 23:41 PM Soft Tissue Neck CT 02/19/24 21:35 Exam(s): CT NECK Without Contrast EXAM: CT Neck Without Intravenous Contrast CLINICAL HISTORY: Reason for exam: inability to swallow. TECHNIQUE: Axial computed tomography images of the neck without intravenous contrast. CTDI is 19.8 mGy and DLP is 708.57 mGy-cm. Automated exposure control was utilized for the study. A dose lowering technique was utilized adhering to the principles of ALARA. COMPARISON: No relevant prior studies available. FINDINGS: Nasal cavity/septum: Unremarkable. Nasopharynx: Unremarkable. Oropharynx: Prominent faucial and lingual tonsils. Hypopharynx: Unremarkable. Larynx: Unremarkable. Normal epiglottis. Trachea: Unremarkable. Retropharyngeal space: Unremarkable. Submandibular/parotid glands: Unremarkable. Glands are normal in size. Thyroid: Unremarkable. No enlarged or calcified nodules. Bones/joints: No acute fracture. Soft tissues: Unremarkable. Vasculature: No acute findings. Lymph nodes: Cervical lymphadenopathy. Sinuses: Chronic maxillary and left ethmoid sinusitis. No acute sinusitis. Lung apices: Unremarkable as visualized. IMPRESSION: Prominent lingual and faucial tonsils with cervical lymphadenopathy. No evidence of abscess or drainable fluid collection on this noncontrast study. Electronically signed by: Ilene Rhodes MD 02/19/24 23:24 PM Hospital Course (1) Odynophagia: Acute with inability to tolerate oral intake - Continue supportive IVF - IV Decadron ordered, continued initially - HSV testing ordered/pending - GI consulted, underwent EGD on 02/19 with several ulcerations appreciated throughout esophagus suspicious for HSV infectious esophagitis - Decadron d/c'd, protonix initiated as well as IV acyclovir - CLD initiated and he has tolerated well, continue to maintain adequate oral intake, fluids with electrolytes + glucose, smoothies, protein shakes - Advance diet as tolerated, avoid aggravating foods. Avoid NSAIDs. - Pt is medically stable for d/c home today. School excuse provided. Complete 10-day course of acyclovir 400mg TID Plan All questions answered at bedside. Patient is medically stable for discharge home with outpatient f/u with pcp. Plan d/w Dr. Nelson. Total time for discharge: 35 minutes Coding Level of Care Code 03503 INP/OBS DISCH >30 MIN Diagnoses Odynophagia R13.10
== END 2024-02-21 13:41 | disposition home or self-care (01) ==
LOC: ED 15:09 → INTOOBSV 21:47 → SUATTDRO 21:47 → 3E 21:47